=== PATIENT | female | born 2000 | race Caucasian/White ===

== ENCOUNTER 2018-01-04 22:51 | Emergency (ER) | payer OTHER ==
[~2018-01-04] VITALS: Ht 165.1 cm; Wt 81.6 kg
[2018-01-04] MEDS ORDERED: LACTATED RINGERS 1,000 ML IV ONE (23:08)
[2018-01-04 23:23] LABS: BASOPHILS % (AUTO) 0 % (0-10); EOSINOPHILS # (AUTO) 0.1 10^3/uL (0.0-0.3); EOSINOPHILS % (AUTO) 1 % (0-10); HEMATOCRIT 39 % (35-52); HEMOGLOBIN 13.1 G/DL (11.5-16.0); LYMPHOCYTES # (AUTO) 2.6 X 10^3 (1.0-4.0); LYMPHOCYTES % (AUTO) 32 % (12-44); MEAN CORPUSCULAR HEMOGLOBIN 27 PG (25-34); MEAN CORPUSCULAR HGB CONC 34 G/DL (32-36); MEAN CORPUSCULAR VOLUME 80 FL (80-99); MEAN PLATELET VOLUME 8.9 FL (7.4-10.4); MONOCYTES # (AUTO) 0.8 X 10^3 (0.0-1.0); MONOCYTES % (AUTO) 9 % (0-12); NEUTROPHILS # (AUTO) 4.6 X 10^3 (1.8-7.8); NEUTROPHILS % (AUTO) 57 % (42-75); PLATELET COUNT 278 10^3/uL (130-400); RED BLOOD COUNT 4.88 10^6/uL (4.35-5.85); RED CELL DISTRIBUTION WIDTH 14.1 % (10.0-14.5)
--- NOTE | 2018-01-04 23:34 | ED Back Pain ---
General Chief Complaint: Back Problems Stated Complaint: LOWER BACK PAIN MOVING UP Source of Information: Patient Exam Limitations: No Limitations History of Present Illness Date Seen by Provider: Jan 04, 2018 Time Seen by Provider: 23:10 Initial Comments PT ARRIVES VIA POV FROM HOME C/O RIGHT FLANK PAIN SINCE LAST NIGHT/EARLY THIS AM PAIN RADIATING TO RLQ THIS AFTERNOON PAIN IS CONSTANT AND NOTHING WORSENS OR IMPROVES PAIN NO RELIEF WITH TYLENOL AROUND 1900 AND MOTRIN AROUND 2230 NO FEVER + NAUSEA, NO VOMITING NO URINARY SYMPTOMS NO HISTORY OF SIMILAR LMP 12/17/17. NORMAL. NO CONTROL. PT IS NOT SEXUALLY ACTIVE. Other Comments [employer] [facility] FROM [place] Allergies and Home Medications Allergies Coded Allergies: No Known Drug Allergies (Unverified , 01/04/18) Patient Home Medication List Home Medication List Reviewed: Yes Review of Systems Constitutional: no symptoms reported Respiratory: no symptoms reported Cardiovascular: no symptoms reported Gastrointestinal: RLQ, see HPI, abdominal pain; No vomiting Genitourinary: see HPI : No LMP: Dec 17, 2017 Control/STD Prophylaxis: BC Pills Musculoskeletal: see HPI, back pain Skin: no symptoms reported Psychiatric/Neurological: No Symptoms Reported Past Ygiuifm-[id number]-[id number] Hx Patient Social History Alcohol Use: Denies Use Recreational Drug Use: No Smoking Status: Never a Smoker Recent Foreign Travel: No Contact w/Someone Who Travel: No Past Medical History Surgeries: Yes (WISDOM TEETH) Respiratory: No Cardiac: No Neurological: No Reproductive Disorders: No Genitourinary: No Gastrointestinal: No Musculoskeletal: No Endocrine: No HEENT: No Cancer: No Psychosocial: No Integumentary: No Blood Disorders: No Physical Exam Vital Signs Vital Signs - First Documented 01/04/18 23:00 Temp 97.5 Pulse 67 Resp 17 B/P (MAP) 131/82 Pulse Ox 100 O2 Delivery Room Air Capillary Refill : Height, Weight, BMI Height: '" Weight: lbs. oz. kg; BMI Method: General Appearance: No Apparent Distress, WD/WN, Other (LAYING OUTSTRETCHED, WALKS UPRIGHT AND MOVES WITHOUT DIFFICULTY. DOES NOT APPEAR TO BE IN ANY DISCOMFORT AT THIS TIME. SMILING, SITTING -STYLE FOR MOST OF ER STAY. ) Neck: Normal Inspection Cardiovascular: Regular Rate, Rhythm, No Murmur Respiratory: Normal Breath Sounds, No Accessory Muscle Use, No Respiratory Distress Gastrointestinal: Normal Bowel Sounds, No Organomegaly, No Pulsatile Mass, Soft , Tenderness (MILD RLQ TENDERNESS) Back: No Vertebral Tenderness, CVA Tenderness (R) (MILD) Extremity: Normal Inspection Neurologic/Psychiatric: Alert, Oriented x3, No Motor/Sensory Deficits, Normal Mood/Affect, multi site leasing consultant II-XII Norm as Tested Skin: Normal Color, Warm/Dry; No Rash Progress/Results/Core Measures Results/Orders Lab Results Laboratory Tests Test 01/04/18 23:15 01/05/18 00:25 Range/Units White Blood Count 8.0 4.3-11.0 10^3/uL Red Blood Count 4.88 4.35-5.85 10^6/uL Hemoglobin 13.1 11.5-16.0 G/DL Hematocrit 39 35-52 % Mean Corpuscular Volume 80 80-99 FL Mean Corpuscular Hemoglobin 27 25-34 PG Mean Corpuscular Hemoglobin Concent 34 32-36 G/DL Red Cell Distribution Width 14.1 10.0-14.5 % Platelet Count 278 130-400 10^3/uL Mean Platelet Volume 8.9 7.4-10.4 FL Neutrophils (%) (Auto) 57 42-75 % Lymphocytes (%) (Auto) 32 12-44 % Monocytes (%) (Auto) 9 0-12 % Eosinophils (%) (Auto) 1 0-10 % Basophils (%) (Auto) 0 0-10 % Neutrophils # (Auto) 4.6 1.8-7.8 X 10^3 Lymphocytes # (Auto) 2.6 1.0-4.0 X 10^3 Monocytes # (Auto) 0.8 0.0-1.0 X 10^3 Eosinophils # (Auto) 0.1 0.0-0.3 10^3/uL Basophils # (Auto) 0.0 0.0-0.1 10^3/uL Sodium Level 141 135-145 MMOL/L Potassium Level 3.8 3.6-5.0 MMOL/L Chloride Level 107 98-107 MMOL/L Carbon Dioxide Level 22 21-32 MMOL/L Anion Gap 12 5-14 MMOL/L Blood Urea Nitrogen 13 7-18 MG/DL Creatinine 0.94 0.60-1.30 MG/DL Estimat Glomerular Filtration Rate > 60 BUN/Creatinine Ratio 14 Glucose Level 110 H 70-105 MG/DL Calcium Level 9.7 8.5-10.1 MG/DL Corrected Calcium 8.5-10.1 MG/DL Total Bilirubin 0.3 0.1-1.0 MG/DL Aspartate Amino Transf (AST/SGOT) 18 5-34 U/L Alanine Aminotransferase (ALT/SGPT) 15 0-55 U/L Alkaline Phosphatase 64 40-136 U/L Total Protein 8.0 6.4-8.2 GM/DL Albumin 4.7 H 3.2-4.5 GM/DL Amylase Level 66 25-125 U/L Lipase 54 8-78 U/L Serum Test, Qualitative NEGATIVE NEGATIVE Urine Color YELLOW Urine Clarity SLIGHTLY CLOUDY Urine pH 6 5-9 Urine Specific [place] 1.025 H 1.016-1.022 Urine Protein 1+ H NEGATIVE Urine Glucose (UA) NEGATIVE NEGATIVE Urine Ketones NEGATIVE NEGATIVE Urine Nitrite NEGATIVE NEGATIVE Urine Bilirubin NEGATIVE NEGATIVE Urine Urobilinogen NORMAL NORMAL MG/DL Urine Leukocyte Esterase NEGATIVE NEGATIVE Urine RBC (Auto) NEGATIVE NEGATIVE Urine RBC NONE /HPF Urine WBC RARE /HPF Urine Squamous Epithelial Cells 10-25 H /HPF Urine Crystals NONE /LPF Urine Bacteria MODERATE H /HPF Urine Casts PRESENT /LPF Urine Hyaline Casts RARE /LPF Urine Mucus MODERATE H /LPF Urine Culture Indicated YES My Orders Orders - RAFIA GRAY DO Ua Culture If Indicated (01/04/18 23:06) Urine Bedside (01/04/18 23:06) Ct Abd/Pelvis Wo(Kidney Stone) (01/04/18 23:08) Amylase (01/04/18 23:08) Cbc With Automated Diff (01/04/18 23:08) Comprehensive Metabolic Panel (01/04/18 23:08) Lipase (01/04/18 23:08) Acute Abd Series (01/04/18 23:08) Saline Lock/Iv-Start (01/04/18 23:08) Saline Lock/Iv-Start (01/04/18 23:08) Lactated Ringers (Lr 1000 Ml Iv Solution (01/04/18 23:08) Hcg,Qualitative Serum (01/04/18 23:18) Urine Culture (01/05/18 00:25) Medications Given in ED Current Medications Medications Dose Ordered Sig/Rigoberto Route Start Time Stop Time Status Last Admin Dose Admin Lactated Ringer's 1,000 ml @ 0 mls/hr Q0M ONCE IV 01/04/18 23:08 01/04/18 23:11 DC 01/04/18 23:22 0 MLS/HR Vital Signs/I&O 01/04/18 23:00 Temp 97.5 Pulse 67 Resp 17 B/P (MAP) 131/82 Pulse Ox 100 O2 Delivery Room Air Progress Progress Note : Progress Note UNEVENTFUL ER STAY NO ULTRASOUND AVAILABLE HERE TONIGHT. Diagnostic Imaging Comments ACUTE ABDOMEN XRAYS--NO ACUTE PROCESS, NON-SPECIFIC BOWEL GAS--PENDING RADIOLOGIST REVIEW CT ABDOMEN/PELVIS--4.6 RIGHT OVARIAN CYST WITH SMALL AMOUNT OF FREE FLUID IN PELVIS, OTHERWISE NO ACUTE PROCESS--PER [facility] VIA FAX @ 1858 Reviewed: Reviewed by Me Departure Impression Primary Impression: UTI (urinary tract infection) Additional Impression: Right ovarian cyst Disposition: HOME, SELF-CARE Condition: Stable Departure-Patient Inst. Referrals: NO,LOCAL PHYSICIAN (PCP) Primary Care Physician [facility] Patient Instructions: Ovarian Cyst (DC), Urinary Tract Infection, Adult (DC) Add. Discharge Instructions: LOTS OF CLEAR LIQUIDS--NO COFFEE POP OR TEA FOLLOW UP WITH [facility] THIS WEEK FOR FURTHER CARE RETURN TO ER IF WORSE All discharge instructions reviewed with patient and/or family. Voiced understanding. Scripts Ketorolac Tromethamine (Ketorolac Tromethamine) 10 Mg Tablet 10 MG PO Q6H for Pain, #15 TAB Prov: RAFIA GRAY DO 01/05/18 Nitrofurantoin Monohyd/M-Cryst (Macrobid 100 mg Capsule) 100 Mg Capsule 100 MG PO BID, #20 CAP Prov: RAFIA GRAY DO 01/05/18 RAFIA GRAY DO Jan 04, 2018 23:34
[2018-01-04 23:43] LABS: ALANINE AMINOTRANSFERASE 15 U/L (0-55); ALBUMIN 4.7 GM/DL (3.2-4.5); ALKALINE PHOSPHATASE 64 U/L (40-136); AMYLASE 66 U/L (25-125); BILIRUBIN,TOTAL 0.3 MG/DL (0.1-1.0); BUN/CREATININE RATIO 14; CALCIUM 9.7 MG/DL (8.5-10.1); CARBON DIOXIDE 22 MMOL/L (21-32); CHLORIDE 107 MMOL/L (98-107); CREATININE SERUM 0.94 MG/DL (0.60-1.30); GFR ESTIMATED > 60; GLUCOSE 110 MG/DL (70-105); LIPASE 54 U/L (8-78); POTASSIUM 3.8 MMOL/L (3.6-5.0); SODIUM 141 MMOL/L (135-145)
[2018-01-05 00:31] LABS: BILIRUBIN,URINE NEGATIVE (NEGATIVE); CLARITY,URINE SLIGHTLY CLOUDY; COLOR,URINE YELLOW; GLUCOSE, URINE (UA) NEGATIVE (NEGATIVE); KETONES,URINE NEGATIVE (NEGATIVE); LEUKOCYTE ESTERASE ,URINE NEGATIVE (NEGATIVE); NITRITE,URINE NEGATIVE (NEGATIVE); PH,URINE 6 (5-9); PROTEIN,URINE 1+ (NEGATIVE); UROBILINOGEN,URINE NORMAL (NORMAL)
[2018-01-05 00:39] LABS: BACTERIA,URINE MODERATE /HPF; HYALINE CASTS, URINE RARE /LPF; WBC,URINE RARE /HPF
[2018-01-05] MEDS ORDERED: NITR-65 PO (00:58)
[2018-01-05] MEDS ORDERED: KETO10TA PO (00:58)
[2018-01-05] MEDS ORDERED: KETOROLAC 30 MG/ML VIAL IVP ONE (01:00)
[2018-01-05] MEDS ORDERED: cefTRIAXone FOR IV USE 1,000 MG in NS (IVPB) 50 ML IV ONE (01:00)
--- NOTE | 2018-01-05 05:59 | Diagnostic Imaging Report ---
EXAMINATION: Acute abdomen series INDICATION: Abdominal pain There are no prior studies available for comparison. The accompanying erect PA chest shows the heart size to be within normal limits. The lungs are clear. There is no sign of a pneumoperitoneum. Supine and erect views of the abdomen were obtained. There is gas in both the large and small bowel in a nonspecific fashion. There is no evidence for a bowel obstruction. There does appear to be a moderate amount of fecal material in the ascending colon. There is no mass, organomegaly or pathological calcification evident. The osseous structures are intact. IMPRESSION: 1. The bowel gas pattern is nonspecific. There is no evidence for an acute abnormality. 2. Reportedly, CT abdomen of the abdomen and pelvis is pending for further study. Dictated by: Dictated on workstation # [id number]
--- NOTE | 2018-01-05 06:12 | Diagnostic Imaging Report ---
PROCEDURE: CT urinary tract, rule out kidney stone. TECHNIQUE: Multiple contiguous axial images were obtained through the abdomen and pelvis without the use of intravenous contrast. INDICATION: Right lower quadrant pain There are no prior studies available for comparison. There is no evidence for nephrolithiasis or urolithiasis and the kidneys do not seem to be obstructed. The urinary bladder is grossly unremarkable. The images through the pelvis do show that there is a 4.2 x 4.3 CM rounded low density mass in the right adnexa. I suspect that this is an ovarian cyst. There also appears to be a small amount of free fluid present. This may be related to the recent rupture of the suspected ovarian cyst. If further evaluation of pelvic contents is desired, then ultrasound would be recommended. The uterus does not appear to be enlarged. The appendix was visualized and is not abnormally thickened. The liver, spleen, pancreas, adrenals, gallbladder, aorta and inferior vena cava are unremarkable for an acute abnormality. The stomach is filled with fluid and particulate matter and consequently difficult to assess. The lung bases are clear. The bone windows show no evidence for a fracture or for a destructive lesion. IMPRESSION: 1. There is a 4.2 x 4.3 CM rounded area of low density in the right adnexa. Most likely, this is a cyst arising from the right ovary. There also appears to be a small amount of free fluid in the pelvis. If further evaluation is desired, then ultrasound would be recommended. 2. There is no acute abnormality of the abdomen or pelvis noted otherwise. Dictated by: Dictated on workstation # [id number]
== END 2018-01-05 01:39 | disposition home or self-care (01) ==
LOC: ER 22:52
DX: N39.0 Urinary tract infection, site not specified (principal); N83.201 Unspecified ovarian cyst, right side
CPT/HCPCS: 36415; 74022; 74176; 80053; 81000; 82150; 83690; 84703; 85025; 87088; 96361; 96365; 96375